=== PATIENT | female | born 1960 | race Caucasian/White ===

== ENCOUNTER → 2016-09-02 | Day surgery (SDC) | payer BC ==
[2016-08-30 08:56] VITALS: BMI 29.7
--- NOTE | 2016-09-01 08:36 | SC.ANESEVA ---
Anesthesia Eval & Plan ([facility]) - Providers Surgeon:: Jerome Raymond - Medications/Allergies Allergies: Allergies duloxetine [From Cymbalta] Allergy (Verified 08/30/16 08:41) Rash-Generalized Home Medications: Home Medication List Amitriptyline HCl [Elavil] 50 mg PO QHS 08/30/16 [History] Atorvastatin Calcium [Lipitor] 10 mg PO DAILY 08/30/16 [History] Cyclobenzaprine HCl [Flexeril] 5 mg PO BID PRN 08/30/16 [History] Meloxicam [Mobic] 15 mg PO DAILY 08/30/16 [History] Metoprolol Succinate 50 mg PO DAILY 08/30/16 [History] PEG-Electrolytes (Miralax) [Miralax] 17 gm PO DAILY PRN 08/30/16 [History] Zolpidem Tartrate [Ambien] 0.5 - 1 mg PO QHS PRN 08/30/16 [History] Current Medication List: Reviewed - Focused Physical Exam NPO since: Since after Midnight Mallampati: Class II Thyromental Distance: Greater than 3 Neck: Full Range of Motion Dental: Normal - no significant findings Cardiovascular/Chest: Normal (RRR no mumurs or rubs.) Respiratory: Lungs clear. negative: Wheezing Any problems with anesthesia, including nausea and vomiting?: No Any relatives with a history of Malignant Hyperthermia?: No Other: Diagnoses CARPAL TUNNEL SYNDROME, RIGHT UPPER LIMB (09/02/16) Allergies Allergy/AdvReac Type Severity Reaction Status Date / Time duloxetine [From Cymbalta] Allergy Rash-Genera Verified 08/30/16 08:41 lized Home Medications Medication Instructions Recorded Last Taken Type Amitriptyline HCl [Elavil] 50 mg PO QHS 08/30/16 Unknown History Atorvastatin Calcium [Lipitor] 10 mg PO DAILY 08/30/16 Unknown History Cyclobenzaprine HCl [Flexeril] 5 mg PO BID PRN 08/30/16 Unknown History Meloxicam [Mobic] 15 mg PO DAILY 08/30/16 Unknown History Metoprolol Succinate 50 mg PO DAILY 08/30/16 Unknown History PEG-Electrolytes (Miralax) 17 gm PO DAILY PRN 08/30/16 Unknown History [Miralax] Zolpidem Tartrate [Ambien] 0.5 - 1 mg PO QHS PRN 08/30/16 Unknown History Height and Weight Patient's height 5 ft 5 in Patient's weight 81.193 kg Weight (Calculated Kilograms) 81.193 BMI 29.7 - Anesthetic Plan Anesthesia Type: [facility] ([place]), MAC ASA Class: 3 - Focused Review of Systems Cardiac History: Yes: Hx Hypertension, Hx Cardiac Disorders, Hx Abnormal Cholesterol/Hyperlipidemia Gastrointestinal: Yes: Hx Colonoscopy, Hx Endoscopy, Hx Esophageal Dilatation Endocrine: Yes: Hx Diet Controlled Diabetes (prediabetes) Blood/Autoimmune: Yes: Hx Anemia (iron def) Smoking Status: Never smoker Surgical History: Yes: Appendectomy
[~2016-09-02] MED LIST: DEXAMETHASONE 4 MG/ML VIAL IV PRN; DIAZEPAM 5 MG TAB PO PRN; FENTANYL 100 MCG/2 ML VIAL IV PRN; FENTANYL 100 MCG/2 ML VIAL ONE; HYDROCODONE 5 MG/ACETAMIN 325 MG TAB PO PRN; KETOROLAC TROMETH 30 MG/ML VIAL IV PRN; KETOROLAC TROMETH 30 MG/ML VIAL ONE; LABETALOL 20 MG/4 ML SYRINGE IV PRN; LR 1,000 ML IV ONE; LR 1,000 ML IV SCH; MIDAZOLAM 2 MG/2 ML VIAL ONE; NS 1,000 ML IV SCH; NS 250 ML IV SCH; ONDANSETRON HCL 4 MG/2 ML VIAL IV PRN; PROPOFOL 200 MG/20 ML VIAL IV ONE; SCOPOLAMINE TRANSDERMAL PATCH TOP PRN; hydrALAZINE 20 MG/ML VIAL IV PRN
--- NOTE | 2016-09-02 10:45 | PCM.DCS92 ---
Discharge Outpatient Note Additional Instructions: Instructions given: 09/02/16 Prescriptions (given at the office) Diet as tolerated Discharge Instructions: Hand Surgery * Apply ice to the surgical site for 15-20 minutes out of each hour while awake for the first 2 days post-op, then apply as often as needed to control swelling and pain. * Keep Bandage clean and dry until after Physical Therapy appointment. * DO NOT lift more than 1-2 lbs with operative hand * Follow up in office as scheduled * Take stool softener while taking pain medication Follow up in office as scheduled - Call office for any additional concerns. ([phone]) Follow up with Physical therapy as scheduled
--- NOTE | 2016-09-02 11:35 | HIMOPRPT ---
DATE OF PROCEDURE: 09/02/16 PREOPERATIVE DIAGNOSIS: Carpal tunnel syndrome, right hand. POSTOPERATIVE DIAGNOSIS: Carpal tunnel syndrome, right hand. OPERATION: Carpal tunnel release, right hand. SURGEON: Jerome Raymond MD. SUPERVISOR CORRESPONDENCE SECTION: TRAV [place] ANESTHESIA: [place] block. DRAINS: None. COMPLICATIONS: None. BLOOD LOSS: None. DISPOSITION: Stable to recovery. PROCEDURE IN DETAIL: The patient was taken back to the surgical suite, where a forearm Zay block was placed on the right arm. The right hand and forearm was then prepped and draped in the standard sterile fashion and secured with a lead hand taveras. A 3-cm longitudinal incision was made in the thenar crease of the palm. The incision was carried down sharply through the skin and subcutaneous tissues, which were undermined proximally across the wrist crease. An Alms self- retaining retractor was placed. A Crile right angle retractor was placed. The palmar fascia was incised in line with skin incision. The transverse carpal ligament was identified along with superficial palmar arch, which was protected. The contents of the carpal tunnel were dissected from the undersurface of the transverse carpal ligament with a hemostat and a Giles elevator. The distal half of the transverse carpal ligament was released with a 15 blade. The median nerve was initially inspected, then the proximal half of the transverse carpal ligament was released with a carpal tunnel knife. A complete release was confirmed. There was no gross pathology noted within the carpal tunnel. The motor branch of the median nerve was identified and noted to take a transligamentous course radially. The wound was irrigated with sterile saline solution and the skin was closed with simple interrupted 4-0 Prolene sutures. A sterile bulky hand dressing was applied. The tourniquet was deflated. The patient was taken to the recovery room in stable condition. The patient tolerated the procedure well without immediate complications.
[2016-09-02 11:46] VITALS: BP 93/58; PULSE 86; TEMP 98
--- NOTE | 2016-09-02 12:14 | SC.ANESPOS ---
Post-Anesthesia Note LOC: Fully Awake Post-Anesthesia Assessment: Awake, Returned to Baseline, Hemodynamically Stable , Pain Control Adequate Phase I & II Recovery Complete: Yes Apparent Anesthesia Complication: No : N - Vital Signs Blood Pressure: 93/58 Pulse: 86 Resp Rate: 14 O2 Sat: 96 Temp: 98.0 F
== END ==
LOC: CPSC 09:43
PROVIDERS: ATTEND Orthopaedic Surgery
PROC: 01N50ZZ Release Median Nerve, Open Approach (ICD-10-PCS; principal; 2016-09-02 11:00)
DX: G56.01 Carpal tunnel syndrome, right upper limb (principal); I10 Essential (primary) hypertension; E78.5 Hyperlipidemia, unspecified; E78.00 Pure hypercholesterolemia, unspecified; E11.9 Type 2 diabetes mellitus without complications; M19.90 Unspecified osteoarthritis, unspecified site; K58.1 Irritable bowel syndrome with constipation; K76.0 Fatty (change of) liver, not elsewhere classified; F41.9 Anxiety disorder, unspecified; F32.9 Major depressive disorder, single episode, unspecified; Z79.899 Other long term (current) drug therapy
CPT/HCPCS: 64721; J1885; J2250; J2704; J3010